=== PATIENT | female | born 1960 | race Caucasian/White ===

== ENCOUNTER 2017-07-12 20:27 | Emergency (ER) | payer OTHER ==
[~2017-07-12] VITALS: Ht 157.5 cm; Wt 71.4 kg
[2017-07-12 20:37] VITALS: BP 161/84
--- NOTE | 2017-07-12 20:45 | NUR ---
TO ER OF2
--- NOTE | 2017-07-12 20:46 | NUR ---
PATIENT IS A 56 Y/O FEMALE WHO PRESENTS TO THE ED S/P FALL. PT STATES, "I WAS AT [employer] WHEN I FELL AND IT HURTS." PT REPORTS 8/10 ACHING LOW BACK PAIN AND RIGHT ELBOW. PT DENIES CP, SOB, N/V/D. PT REPORTS DIZZINESS. PT AAOX4, RR EVEN/UNLABORED, PERRLA, LUNG CLEAR BL. PT REPOSITIONED FOR COMFORT, PT SITTING IN CHAIR. ER MD VIZCAINO SECIST NOTIFIED. WILL CONTINUE TO MONITOR.
[2017-07-12] MEDS ORDERED: fentaNYL 0.05 MG/ML VIAL IM ONE ×2 (21:05→21:55)
[2017-07-12 22:20] VITALS: BP 150/82
--- NOTE | 2017-07-12 22:20 | NUR ---
Patient discharged with v/s stable. Written and verbal after care instructions given and explained. Patient verbalized understanding. Ambulatory with steady gait. All questions addressed prior to discharge. Advised to follow up with PMD.
== END 2017-07-12 22:20 | disposition home or self-care (01) ==
LOC: MED 20:27
DX: S30.0XXA Contusion of lower back and pelvis, initial encounter (principal); S50.01XA Contusion of right elbow, initial encounter; I10 Essential (primary) hypertension; F17.210 Nicotine dependence, cigarettes, uncomplicated; W01.0XXA Fall on same level from slipping, tripping and stumbling without subsequent striking against object, initial encounter; Y93.89 Activity, other specified; Y92.513 Shop (commercial) as the place of occurrence of the external cause; Y99.8 Other external cause status
CPT/HCPCS: 72100; 73080; 81025; 96372; 99284; J3010